=== PATIENT | male | born 1950 | race Caucasian/White ===

== ENCOUNTER 2021-03-31 02:07 | Emergency (ER) | payer MEDICARE, OTHER, SELFPAY ==
--- NOTE | 2021-03-31 02:34 | ED_ITS ---
HPI - General Adult General Chief complaint: Chest Pain Stated complaint: Pain in muscle left side by arm/chest Time Seen by Provider: 03/31/21 02:18 History of Present Illness HPI narrative: Patient is a 71-year-old male here for evaluation of what he states is muscle pain in his left arm and chest. He has had symptoms off and on for the past several weeks however over the past 24 hours the symptoms seem to be more consistent. He states that he can not touch the area and make it worse and also move his left arm in make it worse. He had very similar symptoms about 40 years ago and was told that it was a muscle spasm. Recently he has been doing quite a bit of work outside. He did walk this morning and had no symptoms during that time. This evening he was lying down trying to go to sleep and the symptoms seem to be more consistent we came in for evaluation. Review of Systems Constitutional Constitutional: Reports system reviewed and no additional complaints, except as documented ENT Ears, Nose, Mouth, and Throat: Reports system reviewed and no additional complaints, except as documented Cardiovascular Cardiovascular: Reports as per HPI Respiratory Respiratory: Reports system reviewed and no additional complaints, except as documented Gastrointestinal Gastrointestinal: Reports system reviewed and no additional complaints, except as documented Musculoskeletal Musculoskeletal: Reports as per HPI Integumentary/Breasts Skin/Breast: Reports system reviewed and no additional complaints, except as documented Neurologic Neurologic: Reports system reviewed and no additional complaints, except as documented Hematologic/Lymphatic On Anticoagulants: No Allergic/Immunologic Allergic/Immunologic: Reports system reviewed and no additional complaints, except as documented Patient History Medical History Prostate cancer Social History Smoking Status: Never smoker Exam Initial Vital Signs Initial Vital Signs: Vital Signs Temperature 98.4 F 03/31/21 02:38 Pulse Rate 97 H 03/31/21 02:38 Respiratory Rate 22 03/31/21 02:38 Blood Pressure 139/83 03/31/21 02:38 Pulse Oximetry 97 03/31/21 02:38 Const General: cooperative, healthy appearing and comfortable HENVA Head: normal to inspection and normocephalic Eyes General: appearance normal, both eyes and all related structures Chest Chest: normal inspection of the chest Resp Effort & Inspection: normal respiratory effort Auscultation: clear to auscultation bilaterally Cardio Rate: regular rate Rhythm: regular rhythm GI Inspection: normal to inspection Skin General: no rashes or lesions noted Neuro General: patient alert, patient awake, patient oriented x3 and moves all extremities Extrem General: normal to inspection and capillary refill normal Other: We were able to localize the symptoms with palpation of the lateral aspect of the left pectoralis muscle. Rest of his musculoskeletal exam is unremarkable Psych Appearance: grossly normal and well kempt Course Orders Ordered: ED Orders 03/31/21 EKG-12 Lead Stat 03/31/21 02:30 Complete Blood Count AUTO DIFF Stat Comprehensive Metabolic Panel Stat Lipase Stat Troponin & CK Cardiac Panel Stat 03/31/21 02:42 XR chest 1V Stat Sodium Chloride (Normal Saline 0.9%) 1,000 mls @ 150 mls/hr IV CONT PAYTON Last Admin: 03/31/21 03:21 Dose: Not Given Documented by: MAR Discontinued Medications Aspirin (Aspirin 81 Mg Chew Tab) 324 mg PO NOW ONE Stop: 03/31/21 02:43 Last Admin: 03/31/21 03:21 Dose: Not Given Documented by: MAR Vital Signs Vital signs: Vital Signs - 8 hr 03/31/21 02:38 Temperature 98.4 F Pulse Rate 97 H Respiratory Rate 22 Blood Pressure 139/83 Pulse Oximetry 97 Medical Decision Making Lab Data Lab results reviewed: Yes I reviewed the patient's lab results. Result diagrams: 03/31/21 02:30 03/31/21 02:30 Labs: Lab Results 03/31/21 03/31/21 Range/Units 02:30 02:30 WBC 6.9 (4.5-11.0) X10^3/uL RBC 4.79 (4.5-5.9) X10^6/uL Hgb 15.5 (13.5-17.5) g/dL Hct 45.7 (41-53) % MCV 95.3 (80-100) fL MCH 32.3 (26-34) PG MCHC 33.9 (30-36) % RDW 13.1 (11.6-14.8) % Plt Count 152 (150-400) X10^3/uL Neut % (Auto) 76.7 H (50-75) % Lymph % (Auto) 7.2 L (25-40) % [place] % (Auto) 10.7 (3-14) % Eos % (Auto) 3.7 (2-4) % Baso % (Auto) 1.7 (0-2) % Neut # (Auto) 5300 (7843-9505) /uL Lymph # (Auto) 500 L (3821-5211) /uL [place] # (Auto) 700 (0-900) /uL Eos # (Auto) 300 (0-450) /uL Baso # (Auto) 100 (0-100) /uL Sodium 137 (137-145) mmol/L Potassium 3.9 (3.4-5.1) mmol/L Chloride 104 (98-107) mmol/L Carbon Dioxide 28 (22-32) mmol/L BUN 23 H (9-20) mg/dL Creatinine 0.72 (0.66-1.25) mg/dL Estimated GFR > 60.0 (>60) mL/min BUN/Creatinine Ratio 31.9 H (6-22) Glucose 96 (80-110) mg/dL Calcium 8.8 (8.4-10.2) mg/dL Total Bilirubin 0.5 (0.2-1.3) mg/dL AST 28 (17-59) IU/L ALT 23 (<50) IU/L Alkaline Phosphatase 56 (38-126) U/L Total Creatine Kinase 39 L (55-170) U/L CK-MB (CK-2) TNP CK-MB (CK-2) Rel Index TNP Troponin I < 0.012 (0.01-0.034) ng/mL Total Protein 6.5 (6.3-8.2) g/dL Albumin 3.6 (3.5-5.0) g/dL Globulin 2.9 (1.7-4.1) g/dL Albumin/Globulin Ratio 1.2 (1.0-2.8) Lipase 349 H (23-300) U/L Imaging Data Chest x-ray: Radiologist's Impression: No acute finding ECG Data Attestation: I personally reviewed and interpreted this ECG as follows: Interpretation: Sinus rhythm Ventricular rate is 69 Normal axis Normal QRS Normal QTC No ST T wave changes MDM Narrative Medical decision making narrative: Patient's symptoms today are clearly musculoskeletal. They are reproducible with movement of his left arm and also with palpation of the lateral aspect of his left pectoralis muscle. His tro ponin EKG and chest x-ray in the rest of his workup were unremarkable. I feel that we can hold on further workup for now. I did discuss this with the patient. He was given return precautions. He expressed understanding and agreement. Discharge Plan Departure Patient Disposition: Home Clinical Impression: Pectoralis muscle strain Instructions: Muscle Strain Activity Restrictions/Additional Instructions: Continue all of your medications as directed. Contact your primary provider for a follow-up. Return to the emergency department for any new or worsening symptoms
[2021-03-31 02:38] VITALS: BP 139/83; PULSE 97; RESP 22; TEMP 36.9; O2SAT 97; BMI 22.4
--- NOTE | 2021-03-31 02:42 | DI.RAD.S_ITS ---
PROCEDURE: XR CHEST 1V INDICATIONS: chest pain TECHNIQUE: One view of the chest was acquired. COMPARISON: None. FINDINGS: Surgical changes and devices: None. Lungs and pleura: Lungs are clear. No pleural effusions or pneumothorax. Mediastinum: Mediastinal contours appear normal. Heart size is normal. Bones and chest wall: No suspicious bony lesions. Overlying soft tissues appear unremarkable. IMPRESSION: No acute cardiopulmonary disease process. Dictated by: Heather Ortiz MD, PhD on 03/31/2021 at 9:00 Approved by: Heather Ortiz MD, PhD on 03/31/2021 at 9:01
[2021-03-31 02:54] LABS: Add Manual Diff / Slide Review NO; Basophils Absolute Auto 100 /uL (0-100); Basophils Percent Auto 1.7 % (0-2); Eosinophils Absolute Auto 300 /uL (0-450); Eosinophils Percent Auto 3.7 % (2-4); Hematocrit 45.7 % (41-53); Hemoglobin 15.5 g/dL (13.5-17.5); Lymphocytes Absolute Auto 500 /uL (1100-4500); Lymphocytes Percent Auto 7.2 % (25-40); Mean Corpuscular HGB Conc 33.9 % (30-36); Mean Corpuscular Hemoglobin 32.3 PG (26-34); Mean Corpuscular Volume 95.3 fL (80-100); Monocytes Absolute Auto 700 /uL (0-900); Monocytes Percent Auto 10.7 % (3-14); Neutrophils Absolute Auto 5300 /uL (1500-7000); Neutrophils Percent Auto 76.7 % (50-75); Platelet Count 152 X10^3/uL (150-400); Red Blood Cell Count 4.79 X10^6/uL (4.5-5.9); Red Cell Distribution Width 13.1 % (11.6-14.8); White Blood Cell Count 6.9 X10^3/uL (4.5-11.0)
[2021-03-31 02:55] LABS: Alanine Aminotransferase 23 IU/L (<50); Albumin 3.6 g/dL (3.5-5.0); Albumin Globulin Ratio 1.2 (1.0-2.8); Alkaline Phosphatase 56 U/L (38-126); Aspartate Aminotransferase 28 IU/L (17-59); BUN Creatinine Ratio 31.9 (6-22); Bilirubin Total 0.5 mg/dL (0.2-1.3); Blood Urea Nitrogen 23 mg/dL (9-20); Calcium 8.8 mg/dL (8.4-10.2); Carbon Dioxide 28 mmol/L (22-32); Chloride 104 mmol/L (98-107); Creatine Kinase 39 U/L (55-170); Estimated Glomerular Filt Rate > 60.0 mL/min (>60); Globulin 2.9 g/dL (1.7-4.1); Glucose 96 mg/dL (80-110); HEMOLYSIS 38 (0-50); Lipase 349 U/L (23-300); Potassium 3.9 mmol/L (3.4-5.1); Sodium 137 mmol/L (137-145); Total Protein 6.5 g/dL (6.3-8.2)
[2021-03-31 03:06] LABS: Troponin I < 0.012 ng/mL (0.01-0.034)
== END 2021-03-31 04:30 | disposition home or self-care (01) ==
PROVIDERS: Emergency Provider Emergency Medicine
DX: S29.011A Strain of muscle and tendon of front wall of thorax, initial encounter (principal)
CPT/HCPCS: 36415; 71045; 80053; 82550; 83690; 84484; 85025; 93005; 99283; 99284

== ENCOUNTER 2021-06-27 07:04 | Emergency (ER) | payer MEDICARE, OTHER, SELFPAY ==
[2021-06-27 07:09] VITALS: BP 159/82; PULSE 70; RESP 16; TEMP 36.6; O2SAT 95; BMI 23.7
--- NOTE | 2021-06-27 07:19 | ED_ITS ---
HPI - Eye Problem General Chief complaint: Eye Problems Stated complaint: right eye puffy/blurry vision x1 day Time Seen by Provider: 06/27/21 07:09 History of Present Illness HPI Narrative: 71-year-old male nonsmoker with history of atrial fibrillation presents with his in the chief complaint of an irritation to his right eye over the past day or so. He states that he has no pain but some swelling of the eye and eyelid along with redness and watering. He denies no pain or injury. He was working on his boat yesterday and may have got something in his eye but he does not remember any definite exposure. He denies upper respiratory complaints such as runny nose, sneezing or cough. He has had no fever or chills. He denies any headache or other neurologic symptoms. He does not wear contacts. Related Data Previous Rx's Medication Instructions Recorded sulfacetamide sodium 10 % eye drops 1 drp EYE-RIGHT Q2H #5 ml 06/27/21 Allergies Allergy/AdvReac Type Severity Reaction Status Date / Time quinine Allergy Mild Rash Verified 06/27/21 07:30 Review of Systems Review of Systems Narrative: GENERAL: Denies chills, fatigue, malaise, fever, sweats. HEENT: See HPI RESPIRATORY: Denies dyspnea, cough, wheezing, hemoptysis, sputum. CARDIOVASCULAR: Denies chest pain, palpitations, orthopnea, edema, GASTROINTESTINAL: Denies nausea, vomiting, abdominal pain, diarrhea, constipation, melena. : Denies dysuria, frequency, incontinence, hematuria, urinary retention. MUSCULOSKELETAL: denies weakness, joint pain, or bony pain SKIN: Denies rash, skin lesions, or other NEUROLOGIC: Denies weakness, headache, numbness, change in speech, confusion, seizures, incoordination. PSYCHIATRIC: No concerning psychosocial issues. 12 point review of systems is negative except for those stated above Patient History Medical History Prostate cancer Social History Smoking Status: Never smoker Smoking Status: Never smoker Substance Use Type: does not use Exam Narrative Exam Narrative: GEN: AOx3 and in mild distress EYES: Pupils are equal, round, and reactive to light and accommodation. Extraoccular muscles are intact bilaterally. Right eye slightly injected with raise clear to yellowish tissue at the 9 o'clock position of right eye overlying sclera, does not cross virus. No foreign bodies noted, upper lid aide it. Visual acuity noted on nurse's note. No fluorescein uptake. Pressure with David-Pen, 21 mm Hg CHEST: Lungs are clear to auscultation bilaterally and free of wheezes, rales, or rhonchi. Heart rate is regular rhythm, there are no murmurs, clicks, rubs, or gallops. There is no chest wall tenderness. ABD: Abdomen is soft and nontender. There is no guarding or rebound. Bowel sounds are normal in all 4 quadrants. There is no mass or organomegaly. EXT: Full painless ROM of all extremities with no loss of sensation or strength. SKIN: Warm, pink, and dry. No erythema or rash Initial Vital Signs Initial Vital Signs: Vital Signs Temperature 97.9 F 06/27/21 07:09 Pulse Rate 70 06/27/21 07:09 Respiratory Rate 16 06/27/21 07:09 Blood Pressure 159/82 H 06/27/21 07:09 Pulse Oximetry 95 06/27/21 07:09 Course Orders Ordered: Discontinued Medications Fluorescein Sodium (Fluorescein 1 Mg Strip) 1 mg EYE-RIGHT NOW ONE Stop: 06/27/21 07:20 Last Admin: 06/27/21 07:24 Dose: 1 mg Documented by: GLORIA Proparacaine HCl (Proparacaine 0.5% Ophth Marian) 1 drops EYE-RIGHT NOW ONE Stop: 06/27/21 07:20 Last Admin: 06/27/21 07:24 Dose: 1 drop Documented by: GLORIA Vital Signs Vital signs: Vital Signs - 8 hr 06/27/21 07:09 Temperature 97.9 F Pulse Rate 70 Respiratory Rate 16 Blood Pressure 159/82 H Pulse Oximetry 95 MDM - Eye Problem MDM Narrative Medical decision making narrative: Patient with painless right eye complaint for less than 24 hours, no obvious trauma or injury. No vision change. No contacts. Physical exam is very reassuring. No evidence of corneal ulcers, abnormal pressures to suggest glaucoma. Most likely pain quite kill as it does not cross iris versus Carine GM. Patient given antibiotics for comfort and coverage of potential early infection. Return precautions given and questions answered to his apparent satisfaction Discharge Plan Departure Patient Disposition: Home Clinical Impression: Pterygium eye Qualifiers: Laterality: right Qualified Code(s): H11.001 - Unspecified pterygium of right eye Activity Restrictions/Additional Instructions: *You have been diagnosed with [right eye irritation, most likely a pterygium or pinguecula *What to do: *Please continue to take your regular medications as directed. [x ] New medication prescriptions sent to your pharmacy: [[facility] ] [ ] New medication written as a paper prescription [ ] No new medications given *Please follow up with your primary care provider in 2-3 days, call for an appointment. Let them know you were seen in the Emergency Department and that we ask that you be seen in follow up. We will electronically transmit a record of today's note if your PCP is in our system *If you do not have a primary care provider please contact the [facility] Resource line at [phone]. They will ask some questions about your medical history and help get you set up with a doctor in the community. *Return to Emergency Department if you should have any new, worsening or concerning symptoms, such as [fever greater than 101 F, shaking chills, worsening pain, persistent vomiting or other bothersome symptoms] Prescriptions: New sulfacetamide sodium 10 % drops 1 drp EYE-RIGHT Q2H Qty: 5 RF: 0 Referrals: Gaudencio Castañeda MD [Physician] -
[2021-06-27] MEDS: FLUORESCEIN 1 MG STRIP EYE-RIGHT (07:24)
[2021-06-27] MEDS: PROPARACAINE 0.5% OPHTH SOL 1 DROPS EYE-RIGHT (07:24)
== END 2021-06-27 08:00 | disposition home or self-care (01) ==
PROVIDERS: Emergency Provider Emergency Medicine
DX: H11.001 Unspecified pterygium of right eye (principal)
CPT/HCPCS: 99282

== ENCOUNTER 2022-08-21 11:28 | Emergency (ER) | payer MEDICARE, OTHER, SELFPAY ==
[2022-08-21] VITALS (10 sets, daily range): BP systolic 119–144; BP diastolic 74–84; PULSE 63–80; RESP 14–29; TEMP 36.2; O2SAT 95–99; BMI 23.1
--- NOTE | 2022-08-21 11:56 | DI.RAD.S_ITS ---
PROCEDURE: XR CHEST 1V INDICATIONS: chest pain TECHNIQUE: One view of the chest was acquired. COMPARISON: [facility], CR, XR CHEST 1V, 03/31/2021, 2:45. FINDINGS: Surgical changes and devices: None. Lungs and pleura: 222 On this semiupright portable chest examination, no large pneumothorax or large pleural effusions are seen. No focal infiltrates are seen. Mediastinum: Mediastinal contours appear normal. Heart size is normal. Bones and chest wall: No suspicious bony lesions. Overlying soft tissues appear unremarkable. IMPRESSION: Portable chest within normal limits. Dictated by: Lamin Rousseau M.D. on 08/21/2022 at 11:09 Approved by: Lamin Rousseau M.D. on 08/21/2022 at 11:10
[2022-08-21] MEDS: ASPIRIN 81 MG CHEW TAB 324 MG PO (12:30)
[2022-08-21 12:36] LABS: Add Manual Diff / Slide Review NO; Basophils Absolute Auto 100 /uL (0-100); Basophils Percent Auto 1.2 % (0-2); Eosinophils Absolute Auto 100 /uL (0-450); Eosinophils Percent Auto 2.8 % (2-4); Hemoglobin 16.6 g/dL (13.5-17.5); Lymphocytes Absolute Auto 800 /uL (1100-4500); Lymphocytes Percent Auto 16.1 % (25-40); Mean Corpuscular HGB Conc 33.9 % (30-36); Mean Corpuscular Hemoglobin 32.1 PG (26-34); Mean Corpuscular Volume 94.8 fL (80-100); Monocytes Absolute Auto 600 /uL (0-900); Monocytes Percent Auto 12.5 % (3-14); Neutrophils Absolute Auto 3200 /uL (1500-7000); Neutrophils Percent Auto 67.4 % (50-75); Platelet Count 183 X10^3/uL (150-400); Red Blood Cell Count 5.17 X10^6/uL (4.5-5.9); Red Cell Distribution Width 13.2 % (11.6-14.8); White Blood Cell Count 4.7 X10^3/uL (4.5-11.0)
[2022-08-21 12:47] LABS: Prothrombin Time 11.9 SECONDS (10.1-12.7)
[2022-08-21 12:50] LABS: PTT Partial Thromboplastin Tim 32 SECONDS (26-36)
[2022-08-21 12:56] LABS: Alanine Aminotransferase 25 IU/L (<50); Albumin Globulin Ratio 1.2 (1.0-2.8); Alkaline Phosphatase 63 U/L (38-126); Aspartate Aminotransferase 25 IU/L (17-59); BUN Creatinine Ratio 20.2 (6-22); Bilirubin Total 0.5 mg/dL (0.2-1.3); Blood Urea Nitrogen 19 mg/dL (9-20); Calcium 8.9 mg/dL (8.4-10.2); Carbon Dioxide 28 mmol/L (22-32); Chloride 101 mmol/L (98-107); Creatine Kinase 43 U/L (55-170); Estimated Glomerular Filt Rate > 60 mL/min (>60); Globulin 3.4 g/dL (1.7-4.1); Glucose 92 mg/dL (80-110); HEMOLYSIS 16 (0-50); Lipase 57 U/L (23-300); Potassium 4.3 mmol/L (3.4-5.1); Sodium 138 mmol/L (137-145); Total Protein 7.4 g/dL (6.3-8.2)
[2022-08-21 13:06] LABS: Troponin I < 0.012 ng/mL (0.01-0.034)
--- NOTE | 2022-08-21 13:08 | DI.US.S_ITS ---
PROCEDURE: US PERIPH VENOUS UP EXTREM LT INDICATIONS: PAIN TECHNIQUE: Real-time imaging, as well as color and pulse Doppler interrogation, was performed of the left upper extremity deep veins from the inferior neck to the antecubital fossa. COMPARISON: [facility], CR, XR CHEST 1V, 08/21/2022, 11:55. FINDINGS: The internal jugular vein, visualized portions of the subclavian vein, axillary, and brachial veins are free of intraluminal thrombus. Where physically possible, the veins are normally compressible. Color and pulse Doppler demonstrate normal intraluminal flow, with expected phasicity and pulsatility. Additional scanning of the cephalic and basilic veins of the superficial system demonstrate normal compressibility, without thrombus. IMPRESSION: No left upper extremity DVT. Dictated by: Galo Winslow M.D. on 08/21/2022 at 15:06 Approved by: Galo Winslow M.D. on 08/21/2022 at 15:07
--- NOTE | 2022-08-21 15:30 | ED.CHESTPAIN ---
HPI - Chest Pain <Berenice Espinosa PA-C - Last Filed: 08/21/22 15:36> General Chief Complaint: Chest Pain Stated Complaint: rt Under arm pain and tingling Time Seen by Provider: 08/21/22 12:09 Source: patient Mode of arrival: Ambulatory Limitations: no limitations History of Present Illness HPI narrative: 72-year-old male with past medical history AFib, status post ablation presents to the ED with 1 week of left-sided chest muscle pain, which migrated into his left upper arm today. Patient is concerned that he might have a blood clot in his arm. No history of blood clots. Patient denies fever, chills, rhinorrhea, cough, trouble breathing, nausea, vomiting, abdominal pain, dysuria, lightheadedness, dizziness, syncope. Patient has full range of motion of his arm. Patient denies numbness, weakness. Patient endorses some intermittent tingling in the fingers of his left hand. Patient states that he did sustain an injury last week when he was trying to hold up a cabinet up above on the wall. Related Data Previous Rx's Medication Instructions Recorded sulfacetamide sodium 10 % eye drops 1 drp EYE-RIGHT Q2H #5 mL 06/27/21 Allergies Allergy/AdvReac Type Severity Reaction Status Date / Time quinine Allergy Mild Rash Verified 06/27/21 07:30 Review of Systems <Berenice Espinosa PA-C - Last Filed: 08/21/22 15:36> Review of Systems ROS Unobtainable: All systems reviewed & are unremarkable except as noted in HPI and below Constitutional Constitutional: Denies chills, Denies fatigue, Denies fever(s), Denies frequent falls, Denies lethargy and Denies weakness Eyes Eyes: Denies change in vision, Denies eye discharge, Denies irritation and Denies loss of vision ENT Ears, Nose, Mouth, and Throat: Denies change in voice, Denies dizziness, Denies neck pain, Denies sore throat and Denies throat swelling Cardiovascular Cardiovascular: Reports chest pain, Denies irregular heart rhythm, Denies lightheadedness, Denies palpitations, Denies dyspnea, Denies dyspnea on exertion and Denies orthopnea Respiratory Respiratory: Denies cough, Denies dyspnea, Denies dyspnea on exertion and Denies wheezing Gastrointestinal Gastrointestinal: Denies abdominal pain, Denies change in bowel habits, Denies diarrhea, Denies nausea and Denies vomiting Genitourinary Genitourinary: Denies hematuria, Denies flank pain, Denies urinary incontinence and Denies urinary urgency Musculoskeletal Musculoskeletal: Denies back pain, Denies muscle weakness, Denies neck pain, Denies numbness and Denies tingling Comments: Left upper arm pain, tingling Integumentary/Breasts Skin/Breast: Denies pruritus, Denies erythema, Denies rash and Denies wounds Neurologic Neurologic: Denies behavioral changes, Denies confusion, Denies dizziness, Denies frequent falls, Denies loss of vision, Denies numbness, Denies tingling and Denies weakness Psychiatric Psychiatric: Denies anxiety, Denies behavioral changes, Denies confusion, Denies depression, Denies homicidal ideation and Denies suicidal ideation Endocrine Endocrine: Denies fatigue, Denies flushing and Denies palpitations Hematologic/Lymphatic Hematologic/Lymphatic: Denies easy bruising Allergic/Immunologic Allergic/Immunologic: Denies urticaria, Denies throat swelling and Denies wheezing Patient History <Berenice Espinosa PA-C - Last Filed: 08/21/22 15:36> Medical History Prostate cancer Social History Smoking Status: Never smoker Smoking Status: Never smoker alcohol intake frequency: 0-2 drinks per day Substance Use Type: does not use Exam <Berenice Espinosa PA-C - Last Filed: 08/21/22 15:36> Narrative Exam Narrative: Const General:?cooperative, healthy appearing and comfortable [facility] Head:?normal to inspection Ears:?hearing grossly normal bilaterally Nose:?external nose normal Face and sinus:?normal facial exam and sinuses nontender Mouth:?oral mucosae normal Throat:?posterior oropharynx normal Eyes General:?appearance normal, both eyes and all related structures Neck Neck:?normal visual inspection and no lymphadenopathy noted Resp Effort & Inspection:?normal respiratory effort Auscultation:?clear to auscultation bilaterally Cardio Rate:?regular rate Rhythm:?regular rhythm Musculoskeletal No tenderness to palpation or deformities of left arm. There is full range of motion of left arm. Strength and sensation are intact. Patient is neurovascularly intact. Neuro General:?patient alert, patient awake and patient oriented x3 Initial Vital Signs Initial Vital Signs: Vital Signs Temperature 97.1 F L 08/21/22 11:43 Pulse Rate 80 08/21/22 11:43 Respiratory Rate 14 08/21/22 11:43 Blood Pressure 144/78 H 08/21/22 11:43 Pulse Oximetry 99 08/21/22 11:43 Oxygen Delivery Method 08/21/22 11:43 <Sydnie Akins DO - Last Filed: 08/23/22 07:25> Initial Vital Signs Initial Vital Signs: Vital Signs Temperature 97.1 F L 08/21/22 11:43 Pulse Rate 80 08/21/22 11:43 Respiratory Rate 14 08/21/22 11:43 Blood Pressure 144/78 H 08/21/22 11:43 Pulse Oximetry 99 08/21/22 11:43 Oxygen Delivery Method 08/21/22 11:43 Course <Berenice Espinosa PA-C - Last Filed: 08/21/22 15:36> Orders Ordered: Discontinued Medications Aspirin (Aspirin 81 Mg Chew Tab) 324 mg PO NOW ONE Stop: 08/21/22 11:57 Last Admin: 08/21/22 12:30 Dose: 324 mg Documented By: MLCoco Vital Signs Vital signs: Vital Signs - 8 hr 08/21/22 11:43 08/21/22 12:19 08/21/22 12:20 Temperature 97.1 F L Pulse Rate 80 70 Respiratory Rate 14 14 Blood Pressure 144/78 H 122/75 Pulse Oximetry 99 97 Oxygen Delivery Method Room Air 08/21/22 12:20 08/21/22 12:30 08/21/22 12:30 Temperature Pulse Rate 70 66 Respiratory Rate 22 22 Blood Pressure 121/75 Pulse Oximetry 96 98 Oxygen Delivery Method 08/21/22 13:01 08/21/22 13:01 08/21/22 13:30 Temperature Pulse Rate 70 Respiratory Rate 26 H Blood Pressure 135/81 130/84 Pulse Oximetry 96 Oxygen Delivery Method 08/21/22 13:30 08/21/22 14:00 08/21/22 14:00 Temperature Pulse Rate 68 65 Respiratory Rate 18 15 Blood Pressure 119/80 Pulse Oximetry 96 96 Oxygen Delivery Method 08/21/22 14:30 08/21/22 14:30 08/21/22 15:00 Temperature Pulse Rate 65 Respiratory Rate 19 Blood Pressure 131/74 130/82 Pulse Oximetry 95 Oxygen Delivery Method 08/21/22 15:00 Temperature Pulse Rate 63 Respiratory Rate 17 Blood Pressure Pulse Oximetry 96 Oxygen Delivery Method <Sydnie Akins DO - Last Filed: 08/23/22 07:25> Orders Ordered: Discontinued Medications Aspirin (Aspirin 81 Mg Chew Tab) 324 mg PO NOW ONE Stop: 08/21/22 11:57 Last Admin: 08/21/22 12:30 Dose: 324 mg Documented By: MLM Vital Signs Vital signs: Vital Signs - 8 hr 08/21/22 11:43 08/21/22 12:19 08/21/22 12:20 Temperature 97.1 F L Pulse Rate 80 70 Respiratory Rate 14 14 Blood Pressure 144/78 H 122/75 Pulse Oximetry 99 97 Oxygen Delivery Method Room Air 08/21/22 12:20 08/21/22 12:30 08/21/22 12:30 Temperature Pulse Rate 70 66 Respiratory Rate 22 22 Blood Pressure 121/75 Pulse Oximetry 96 98 Oxygen Delivery Method 08/21/22 13:01 08/21/22 13:01 08/21/22 13:30 Temperature Pulse Rate 70 Respiratory Rate 26 H Blood Pressure 135/81 130/84 Pulse Oximetry 96 Oxygen Delivery Method 08/21/22 13:30 08/21/22 14:00 08/21/22 14:00 Temperature Pulse Rate 68 65 Respiratory Rate 18 15 Blood Pressure 119/80 Pulse Oximetry 96 96 Oxygen Delivery Method 08/21/22 14:30 08/21/22 14:30 08/21/22 15:00 Temperature Pulse Rate 65 Respiratory Rate 19 Blood Pressure 131/74 130/82 Pulse Oximetry 95 Oxygen Delivery Method 08/21/22 15:00 Temperature Pulse Rate 63 Respiratory Rate 17 Blood Pressure Pulse Oximetry 96 Oxygen Delivery Method MDM - Chest Pain <Berenice Espinosa PA-C - Last Filed: 08/21/22 15:36> Lab Data Result diagrams: 08/21/22 12:30 08/21/22 12:30 Labs: Lab Results 08/21/22 08/21/22 08/21/22 Range/Units 12:30 12:30 12:30 WBC 4.7 (4.5-11.0) X10^3/uL RBC 5.17 (4.5-5.9) X10^6/uL Hgb 16.6 (13.5-17.5) g/dL Hct 49.0 (41-53) % MCV 94.8 (80-100) fL MCH 32.1 (26-34) PG MCHC 33.9 (30-36) % RDW 13.2 (11.6-14.8) % Plt Count 183 (150-400) X10^3/uL Neut % (Auto) 67.4 (50-75) % Lymph % (Auto) 16.1 L (25-40) % [place] % (Auto) 12.5 (3-14) % Eos % (Auto) 2.8 (2-4) % Baso % (Auto) 1.2 (0-2) % Neut # (Auto) 3200 (6665-4492) /uL Lymph # (Auto) 800 L (9373-2239) /uL [place] # (Auto) 600 (0-900) /uL Eos # (Auto) 100 (0-450) /uL Baso # (Auto) 100 (0-100) /uL PT 11.9 (10.1-12.7) SECONDS INR 1.0 (0.9-1.3) APTT 32 (26-36) SECONDS Sodium 138 (137-145) mmol/L Potassium 4.3 (3.4-5.1) mmol/L Chloride 101 (98-107) mmol/L Carbon Dioxide 28 (22-32) mmol/L BUN 19 (9-20) mg/dL Creatinine 0.94 (0.66-1.25) mg/dL Estimated GFR > 60 (>60) mL/min BUN/Creatinine Ratio 20.2 (6-22) Glucose 92 (80-110) mg/dL Calcium 8.9 (8.4-10.2) mg/dL Magnesium 2.0 (1.6-2.3) mg/dL Total Bilirubin 0.5 (0.2-1.3) mg/dL AST 25 (17-59) IU/L ALT 25 (<50) IU/L Alkaline Phosphatase 63 (38-126) U/L Total Creatine Kinase 43 L (55-170) U/L CK-MB (CK-2) TNP CK-MB (CK-2) Rel Index TNP Troponin I < 0.012 (0.01-0.034) ng/mL Total Protein 7.4 (6.3-8.2) g/dL Albumin 4.0 (3.5-5.0) g/dL Globulin 3.4 (1.7-4.1) g/dL Albumin/Globulin Ratio 1.2 (1.0-2.8) Lipase 57 (23-300) U/L Imaging Data Chest x-ray: Radiologist's Impression: PROCEDURE:? XR CHEST 1V ? INDICATIONS:? chest pain ? TECHNIQUE:? One view of the chest was acquired.? ? COMPARISON:? [facility], XR CHEST 1V, 03/31/2021, 2:45. ? FINDINGS:? ? Surgical changes and devices:? None.? ? Lungs and pleura:? 222 On this semiupright portable chest examination, no large pneumothorax or large pleural effusions are seen.? No focal infiltrates are seen.? ? Mediastinum:? Mediastinal contours appear normal.? Heart size is normal.? ? Bones and chest wall:? No suspicious bony lesions.? Overlying soft tissues appear unremarkable.? ? IMPRESSION:? ? Portable chest within normal limits. ? ? ? Dictated by: Lamin Rousseau M.D. on 08/21/2022 at 11:09 ? ? Approved by: Lamin Rousseau M.D. on 08/21/2022 at 11:10 ? Ultrasound left upper extremity: Radiologist's Impression: PROCEDURE:? US PERIPH VENOUS UP EXTREM LT ? INDICATIONS:? PAIN ? TECHNIQUE:? Real-time imaging, as well as color and pulse Doppler interrogation, was performed of the left upper extremity deep veins from the inferior neck to the antecubital fossa.? ? COMPARISON:? [facility], XR CHEST 1V, 08/21/2022, 11:55. ? FINDINGS:? The internal jugular vein, visualized portions of the subclavian vein, axillary, and brachial veins are free of intraluminal thrombus.? Where physically possible, the veins are normally compressible.? Color and pulse Doppler demonstrate normal intraluminal flow, with expected phasicity and pulsatility.? Additional scanning of the cephalic and basilic veins of the superficial system demonstrate normal compressibility, without thrombus.? ? IMPRESSION:? No left upper extremity DVT. ? ? Dictated by: Galo Winslow M.D. on 08/21/2022 at 15:06 ? ? Approved by: Galo Winslow M.D. on 08/21/2022 at 15:07 ? [facility] Narrative Medical decision making narrative: 72-year-old male with past medical history AFib, status post ablation presents to the ED with 1 week of left-sided chest muscle pain, which migrated into his left upper arm today. Concern for ACS versus chest wall pain versus musculoskeletal sprain/strain versus DVT versus pneumonia versus other. Will obtain EKG, chest x-ray, labs, troponin, ultrasound left upper extremity. Workup was largely negative. Ultrasound showed no evidence of DVTs. Patient's symptoms are likely due to a musculoskeletal sprain/strain when he was trying to hold up the cabinet last week. Recommend supportive measures with Tylenol, ibuprofen. Recommend follow-up with PCP in 3 days. ED return precautions were discussed with patient. Patient verbalized understanding. <Sydnie Akins, DO - Last Filed: 08/23/22 07:25> Lab Data Labs: Lab Results 08/21/22 08/21/22 08/21/22 Range/Units 12:30 12:30 12:30 WBC 4.7 (4.5-11.0) X10^3/uL RBC 5.17 (4.5-5.9) X10^6/uL Hgb 16.6 (13.5-17.5) g/dL Hct 49.0 (41-53) % MCV 94.8 (80-100) fL MCH 32.1 (26-34) PG MCHC 33.9 (30-36) % RDW 13.2 (11.6-14.8) % Plt Count 183 (150-400) X10^3/uL Neut % (Auto) 67.4 (50-75) % Lymph % (Auto) 16.1 L (25-40) % [place] % (Auto) 12.5 (3-14) % Eos % (Auto) 2.8 (2-4) % Baso % (Auto) 1.2 (0-2) % Neut # (Auto) 3200 (8674-8900) /uL Lymph # (Auto) 800 L (2057-2901) /uL [place] # (Auto) 600 (0-900) /uL Eos # (Auto) 100 (0-450) /uL Baso # (Auto) 100 (0-100) /uL PT 11.9 (10.1-12.7) SECONDS INR 1.0 (0.9-1.3) APTT 32 (26-36) SECONDS Sodium 138 (137-145) mmol/L Potassium 4.3 (3.4-5.1) mmol/L Chloride 101 (98-107) mmol/L Carbon Dioxide 28 (22-32) mmol/L BUN 19 (9-20) mg/dL Creatinine 0.94 (0.66-1.25) mg/dL Estimated GFR > 60 (>60) mL/min BUN/Creatinine Ratio 20.2 (6-22) Glucose 92 (80-110) mg/dL Calcium 8.9 (8.4-10.2) mg/dL Magnesium 2.0 (1.6-2.3) mg/dL Total Bilirubin 0.5 (0.2-1.3) mg/dL AST 25 (17-59) IU/L ALT 25 (<50) IU/L Alkaline Phosphatase 63 (38-126) U/L Total Creatine Kinase 43 L (55-170) U/L CK-MB (CK-2) TNP CK-MB (CK-2) Rel Index TNP Troponin I < 0.012 (0.01-0.034) ng/mL Total Protein 7.4 (6.3-8.2) g/dL Albumin 4.0 (3.5-5.0) g/dL Globulin 3.4 (1.7-4.1) g/dL Albumin/Globulin Ratio 1.2 (1.0-2.8) Lipase 57 (23-300) U/L ECG Data Interpretation: Alfrednick-normal sinus rhythm rate 71 CO interval 142 QRS [address] depression with T-wave inversion noted in lead 3 similar to previous EKG in 2020 no further changes. Discharge Plan Departure Patient Disposition: Home Clinical Impression: Arm pain Instructions: DI for Arm Pain Activity Restrictions/Additional Instructions: You were evaluated in the ED today for left arm pain and left-sided chest muscle pain. Your chest x-ray, EKG, labs, ultrasound were normal. Your symptoms are likely due to a musculoskeletal sprain/strain that you sustained when you were trying to hold up the cabinet. You may take Tylenol or ibuprofen for your symptoms. Please follow-up with your primary care doctor in 3 days. Return to the ED if your symptoms worsen you have worsening chest pain, trouble breathing. Prescriptions: No Action sulfacetamide sodium 10 % drops 1 drp EYE-RIGHT Q2H Qty: 5 0RF Rx Instructions: while awake, until better Visit Report Forms: Patient Portal/API <Sydnie Akins DO - Last Filed: 08/23/22 07:25> Cosign ED Attending Marianna Attestation: I was immediately available in the department for consultation. Documentation has been reviewed. I agree with assessment and plan.
== END 2022-08-21 16:00 | disposition home or self-care (01) ==
PROVIDERS: Emergency Medicine; Emergency Provider Student in an Organized Health Care Education/Training Program
DX: M79.602 Pain in left arm (principal); R07.89 Other chest pain
CPT/HCPCS: 36415; 71045; 80053; 82550; 83690; 83735; 84484; 85025; 85610; 85730; 93005; 93971; 99284

== ENCOUNTER 2024-01-17 16:40 | Emergency (ER) | payer MEDICARE, OTHER, SELFPAY ==
[2024-01-17 17:03] VITALS: BP 124/85; PULSE 71; RESP 16; TEMP 36.9; O2SAT 97; BMI 22.4
--- NOTE | 2024-01-17 17:32 | DI.RAD.S_ITS ---
PROCEDURE: XR CHEST 1V INDICATIONS: chest pain TECHNIQUE: One view of the chest was acquired. COMPARISON: [facility], CR, XR CHEST 1V, 08/21/2022, 11:55. FINDINGS: Surgical changes and devices: None. Lungs and pleura: Lungs are clear. No pleural effusions or pneumothorax. Mediastinum: Mediastinal contours appear normal. Heart size is normal. Bones and chest wall: No suspicious bony lesions. Overlying soft tissues appear unremarkable. IMPRESSION: No acute cardiopulmonary pathology. Dictated by: Raimundo Redd M.D. on 01/17/2024 at 18:03 Approved by: Raimundo Redd M.D. on 01/17/2024 at 18:04
[2024-01-17 17:40] LABS: INR 1.1 (0.9-1.3); Prothrombin Time 12.4 SECONDS (9.4-12.5)
[2024-01-17 17:42] LABS: PTT Partial Thromboplastin Tim 39 SECONDS (25.1-36.5)
[2024-01-17 17:44] LABS: Add Manual Diff / Slide Review NO; Basophils Absolute Auto 100 /uL (0-100); Basophils Percent Auto 0.7 % (0-2); Eosinophils Absolute Auto 200 /uL (0-450); Eosinophils Percent Auto 2.4 % (2-4); Hematocrit 46.3 % (41-53); Hemoglobin 15.9 g/dL (13.5-17.5); Lymphocytes Absolute Auto 900 /uL (1100-4500); Lymphocytes Percent Auto 11.2 % (25-40); Mean Corpuscular HGB Conc 34.3 % (30-36); Mean Corpuscular Hemoglobin 33.2 PG (26-34); Mean Corpuscular Volume 96.9 fL (80-100); Monocytes Absolute Auto 1000 /uL (0-900); Monocytes Percent Auto 12.8 % (3-14); Neutrophils Absolute Auto 5900 /uL (1500-7000); Neutrophils Percent Auto 72.9 % (50-75); Platelet Count 158 X10^3/uL (150-400); Red Blood Cell Count 4.77 X10^6/uL (4.5-5.9); Red Cell Distribution Width 13.2 % (11.6-14.8); White Blood Cell Count 8.1 X10^3/uL (4.5-11.0)
[2024-01-17 17:58] LABS: Alanine Aminotransferase 18 IU/L (<50); Albumin Globulin Ratio 1.3 (1.0-2.8); Alkaline Phosphatase 62 U/L (38-126); Aspartate Aminotransferase 23 IU/L (17-59); BUN Creatinine Ratio 28.6 (6-22); Bilirubin Total 0.6 mg/dL (0.2-1.3); Blood Urea Nitrogen 22 mg/dL (9-20); Calcium 8.9 mg/dL (8.4-10.2); Carbon Dioxide 28 mmol/L (22-32); Chloride 104 mmol/L (98-107); Creatine Kinase 38 U/L (55-170); Estimated Glomerular Filt Rate > 60 mL/min (>60); Glucose 130 mg/dL (80-110); HEMOLYSIS < 15 (0-50); Lipase 36 U/L (23-300); Magnesium 2.2 mg/dL (1.6-2.3); Potassium 3.9 mmol/L (3.4-5.1); Sodium 138 mmol/L (137-145)
[2024-01-17 18:09] LABS: Troponin I < 0.012 ng/mL (0.01-0.034)
--- NOTE | 2024-01-17 18:46 | ED_ITS ---
HPI - Chest Pain General Chief Complaint: Chest Pain Stated Complaint: rt shoulder and chest pain Time Seen by Provider: 01/17/24 17:55 Source: patient Mode of arrival: Ambulatory Limitations: no limitations History of Present Illness HPI narrative: 74-year-old male here for evaluation chest discomfort and upper back discomfort. He states 2 weeks ago he thinks that he injured his right pectoralis muscle while clamping. He states since that time instead of letting it heal he has been doing other activities causing the symptoms to progressively worsen. He now states he is having pain in the center of his chest and upper in the back of his neck and upper back. No shortness of breath. It is somewhat worse with movement. No skin changes. He has had symptoms like this in the past that have gotten better with time but he thinks he just has not given it enough time to heal. A couple days ago he was using a tool to try to remove some clumps of grass from a flower bed and he thinks that he reaggravated it. He is here because he was advised to come for evaluation by family members. Related Data Previous Rx's Medication Instructions Recorded sulfacetamide sodium 10 % eye drops 1 drp EYE-RIGHT Q2H #5 mL 06/27/21 Allergies Allergy/AdvReac Type Severity Reaction Status Date / Time quinine Allergy Mild Rash Verified 06/27/21 07:30 Review of Systems Review of Systems Narrative: See HPI Patient History Medical History Prostate cancer Social History Smoking Status: Never smoker Smoking Status: Never smoker alcohol intake frequency: 0-2 drinks per day Substance Use Type: does not use Exam Initial Vital Signs Initial Vital Signs: Vital Signs Temperature 98.5 F 01/17/24 17:03 Pulse Rate 71 01/17/24 17:03 Respiratory Rate 16 01/17/24 17:03 Blood Pressure 124/85 01/17/24 17:03 Pulse Oximetry 97 01/17/24 17:03 Oxygen Delivery Method Room Air 01/17/24 17:03 Const General: cooperative, comfortable and No ill appearing HENMT Head: normal to inspection and normocephalic Chest Other: Mild discomfort to palpation over right pectoralis muscle Resp Effort & Inspection: normal respiratory effort Auscultation: clear to auscultation bilaterally Cardio Rate: regular rate Skin General: no rashes or lesions noted Neuro General: patient alert, patient awake and moves all extremities Extrem General: capillary refill normal Course Orders Ordered: ED Orders 01/17/24 17:25 Complete Blood Count AUTO DIFF Stat Comprehensive Metabolic Panel Stat Lipase Stat Magnesium Stat PTT Partial Thromboplastin Keith Stat Prothrombin Time INR Stat Troponin & CK Cardiac Panel Stat 01/17/24 17:32 XR chest 1V Stat EKG-12 Lead Stat Vital Signs Vital signs: Vital Signs - 8 hr 01/17/24 17:03 01/17/24 18:50 Temperature 98.5 F Pulse Rate 71 61 Respiratory Rate 16 Blood Pressure 124/85 136/80 Pulse Oximetry 97 99 Oxygen Delivery Method Room Air Room Air MDM - Chest Pain Lab Data Attestation: I reviewed the patient's lab results. 01/17/24 17:25 01/17/24 17:25 Labs: Lab Results 01/17/24 Range/Units 17:25 WBC 8.1 (4.5-11.0) X10^3/uL RBC 4.77 (4.5-5.9) X10^6/uL Hgb 15.9 (13.5-17.5) g/dL Hct 46.3 (41-53) % MCV 96.9 (80-100) fL MCH 33.2 (26-34) PG MCHC 34.3 (30-36) % RDW 13.2 (11.6-14.8) % Plt Count 158 (150-400) X10^3/uL Neut % (Auto) 72.9 (50-75) % Lymph % (Auto) 11.2 L (25-40) % [place] % (Auto) 12.8 (3-14) % Eos % (Auto) 2.4 (2-4) % Baso % (Auto) 0.7 (0-2) % Neut # (Auto) 5900 (7265-1924) /uL Lymph # (Auto) 900 L (1466-4057) /uL [place] # (Auto) 1000 H (0-900) /uL Eos # (Auto) 200 (0-450) /uL Baso # (Auto) 100 (0-100) /uL PT 12.4 (9.4-12.5) SECONDS INR 1.1 (0.9-1.3) APTT 39 H (25.1-36.5) SECONDS Sodium 138 (137-145) mmol/L Potassium 3.9 (3.4-5.1) mmol/L Chloride 104 (98-107) mmol/L Carbon Dioxide 28 (22-32) mmol/L BUN 22 H (9-20) mg/dL Creatinine 0.77 (0.66-1.25) mg/dL Estimated GFR > 60 (>60) mL/min BUN/Creatinine Ratio 28.6 H (6-22) Glucose 130 H (80-110) mg/dL Calcium 8.9 (8.4-10.2) mg/dL Magnesium 2.2 (1.6-2.3) mg/dL Total Bilirubin 0.6 (0.2-1.3) mg/dL AST 23 (17-59) IU/L ALT 18 (<50) IU/L Alkaline Phosphatase 62 (38-126) U/L Total Creatine Kinase 38 L (55-170) U/L Troponin I < 0.012 (0.01-0.034) ng/mL Total Protein 7.0 (6.3-8.2) g/dL Albumin 4.0 (3.5-5.0) g/dL Globulin 3.0 (1.7-4.1) g/dL Albumin/Globulin Ratio 1.3 (1.0-2.8) Lipase 36 (23-300) U/L Imaging Data Chest x-ray: Radiologist's Impression: PROCEDURE: XR CHEST 1V INDICATIONS: chest pain TECHNIQUE: One view of the chest was acquired. COMPARISON: [facility], , XR CHEST 1V, 08/21/2022, 11:55. FINDINGS: Surgical changes and devices: None. Lungs and pleura: Lungs are clear. No pleural effusions or pneumothorax. Mediastinum: Mediastinal contours appear normal. Heart size is normal. Bones and chest wall: No suspicious bony lesions. Overlying soft tissues appear unremarkable. IMPRESSION: No acute cardiopulmonary pathology. ECG Data Attestation: I personally reviewed and interpreted this ECG as follows: Interpretation: Sinus rhythm Ventricular rate is 72 Normal axis Normal QRS Normal QTC No ST T wave changes MDM Narrative Medical decision making narrative: Workup here in the emergency department is very reassuring and I suspect that his symptoms are musculoskeletal as it is most consistent with this. No indication for antibiotics. I do have low suspicion for ACS based on his presentation today. He does have a negative troponin. Nonischemic EKG. I did discuss all this with the patient. Provided reassurance. He would like to hold on any muscle relaxers for now. Will have him contact his primary doctor for follow-up. He was given return precautions. He expressed understanding and agreement. Discharge Plan Departure Patient Disposition: Home Clinical Impression: Muscular chest pain Activity Restrictions/Additional Instructions: Continue to take the ibuprofen with food as needed for the discomfort. Contact your primary doctor for a follow-up. Return to the emergency department for new symptoms. Prescriptions: No Action sulfacetamide sodium 10 % drops 1 drp EYE-RIGHT Q2H Qty: 5 0RF Rx Instructions: while awake, until better Referrals: Austen Cee ARNP [Primary Care Provider] - Stand Alone Forms: Patient Portal/API
[2024-01-17 18:50] VITALS: BP 136/80; PULSE 61; O2SAT 99
== END 2024-01-17 18:50 | disposition home or self-care (01) ==
PROVIDERS: Emergency Medicine; Emergency Provider Emergency Medicine; PCP Nurse Practitioner Family
DX: R07.89 Other chest pain (principal)
CPT/HCPCS: 36415; 71045; 80053; 82550; 83690; 83735; 84484; 85025; 85610; 85730; 93005; 99283; 99284

== ENCOUNTER 2024-09-28 13:04 | Emergency (ER) | payer MEDICARE, OTHER, SELFPAY ==
[2024-09-28] VITALS (16 sets, daily range): BP systolic 112–168; BP diastolic 68–114; PULSE 57–69; RESP 16–35; TEMP 36.3–36.8; O2SAT 96–99; BMI 21.5
--- NOTE | 2024-09-28 13:12 | EKG_ITS ---
[address] [address] Test Date: 2024-09-28 Pat Name: Nilesh Castro Department: [facility] Room: Gender: Male Dictaphone Operator: KIMMY : 1950 Requested By: Order Number: [id number] Reading MD: Fabricio Keita Measurements Intervals [place] Rate: 65 P: 78 FL: 138 QRS: 43 QRSD: 80 T: 17 QT: 432 QTc: 449 Interpretive Statements Normal sinus rhythm Electronically Signed On 10-01-2024 23:43:29 PST by Fabricio Keita
--- NOTE | 2024-09-28 13:18 | DI.RAD.S_ITS ---
PROCEDURE: XR CHEST 1V INDICATIONS: chest pain TECHNIQUE: One view of the chest was acquired. COMPARISON: [facility], CR, XR CHEST 1V, 01/17/2024, 17:32. FINDINGS: Surgical changes and devices: None. Lungs and pleura: Lungs are clear. No pleural effusions or pneumothorax. Mediastinum: Mediastinal contours appear normal. Heart size is normal. Bones and chest wall: No suspicious bony lesions. Overlying soft tissues appear unremarkable. IMPRESSION: No acute cardiopulmonary abnormality is seen. Approved by: Joel Huang M.D. on 09/28/2024 at 12:56
[2024-09-28 13:32] LABS: Add Manual Diff / Slide Review NO; Basophils Absolute Auto 100 /uL (0-100); Basophils Percent Auto 1.4 % (0-2); Eosinophils Absolute Auto 200 /uL (0-450); Eosinophils Percent Auto 4.3 % (2-4); Hematocrit 45.2 % (41-53); Hemoglobin 15.6 g/dL (13.5-17.5); Lymphocytes Absolute Auto 900 /uL (1100-4500); Lymphocytes Percent Auto 18.2 % (25-40); Mean Corpuscular HGB Conc 34.5 % (30-36); Mean Corpuscular Hemoglobin 33.4 PG (26-34); Mean Corpuscular Volume 96.8 fL (80-100); Monocytes Absolute Auto 500 /uL (0-900); Monocytes Percent Auto 10.9 % (3-14); Neutrophils Absolute Auto 3100 /uL (1500-7000); Neutrophils Percent Auto 65.2 % (50-75); Platelet Count 150 X10^3/uL (150-400); Red Blood Cell Count 4.67 X10^6/uL (4.5-5.9); Red Cell Distribution Width 12.9 % (11.6-14.8); White Blood Cell Count 4.8 X10^3/uL (4.5-11.0)
[2024-09-28 13:38] LABS: INR 1.1 (0.9-1.3)
[2024-09-28 13:41] LABS: PTT Partial Thromboplastin Tim 38 SECONDS (25.1-36.5)
[2024-09-28 13:43] LABS: Alanine Aminotransferase 22 IU/L (<50); Albumin 3.9 g/dL (3.5-5.0); Albumin Globulin Ratio 1.4 (1.0-2.8); Alkaline Phosphatase 53 U/L (38-126); Aspartate Aminotransferase 28 IU/L (17-59); BUN Creatinine Ratio 28.4 (6-22); Bilirubin Total 0.4 mg/dL (0.2-1.3); Blood Urea Nitrogen 25 mg/dL (9-20); Calcium 8.8 mg/dL (8.4-10.2); Carbon Dioxide 27 mmol/L (22-32); Chloride 104 mmol/L (98-107); Creatine Kinase 40 U/L (55-170); Estimated Glomerular Filt Rate > 60 mL/min (>60); Globulin 2.8 g/dL (1.7-4.1); Glucose 126 mg/dL (80-110); HEMOLYSIS 41 (0-50); Lipase 77 U/L (23-300); Magnesium 1.8 mg/dL (1.6-2.3); Potassium 3.9 mmol/L (3.4-5.1); Sodium 137 mmol/L (137-145); Total Protein 6.7 g/dL (6.3-8.2)
[2024-09-28 13:55] LABS: NT-proBNP (BNP-Adult 18+) 390 pg/mL (<450); Troponin I < 0.012 ng/mL (0.01-0.034)
[2024-09-28] MEDS: ASPIRIN 81 MG CHEW TAB 324 MG PO (14:01)
--- NOTE | 2024-09-28 14:02 | PC.NURSE ---
Pt reports taking 2 pills of an over the counter medication called Nattokinase yesterday.
--- NOTE | 2024-09-28 16:58 | EKG_ITS ---
[address] [address] [address] [address] Test Date: 2024-09-28 Pat Name: Nilesh Castro Department: Room: Gender: Male Urology Nurse: LATANYA : 1950 Requested By: Order Number: [id number] Reading MD: Fabricio Keita Measurements Intervals [place] Rate: 59 P: 72 [place]: 144 QRS: 37 QRSD: 90 T: 28 QT: 436 QTc: 431 Interpretive Statements Sinus bradycardia Electronically Signed On 10-01-2024 23:43:38 PST by Fabricio Keita
[2024-09-28 16:59] LABS: Troponin I < 0.012 ng/mL (0.01-0.034)
--- NOTE | 2024-09-28 17:08 | ED.ARRPALP ---
HPI - Arrhythmia/Palpitations General Chief Complaint: Arrhythmia/Palpitations Stated Complaint: Tightness in Chest, Erratic Heartbeat Time Seen by Provider: 09/28/24 16:02 Source: patient, RN notes reviewed and old records reviewed Mode of arrival: Ambulatory Limitations: no limitations History of Present Illness HPI narrative: 74-year-old male history of atrial fibrillation 1st episode in 1977 had an ablation in 2007, had prostate cancer diagnosed in 2009 treated with chemo and radiation 2-1/2 years ago had a sphincter placed for urination. Patient presents today with complaint of missed beats. Has been going on for 2 or 3 weeks he notes he has probably a little bit dehydrated he has not been drinking as much water as he probably should. Noticed a little bit of tightness in his chest this morning. No shortness of breath, no chest pain. No nausea or vomiting no issues with bowel movements no issues with urination no new swelling of his extremities. No diaphoresis. No lightheadedness or passing out or dizziness. Notes that his symptoms are more intense when he feels very anxious or frustrated particularly with current events in the world. Patient notes he takes 10 mg lisinopril daily, quit aspirin about 4 years ago in the recommendation of his physician he does not take any other anticoagulants. Has had prior cardiac ablation. No tobacco, no alcohol no recreational drugs. Does not drink caffeine. Does take some supplements including nattokinase. Also notes he was taking magnesium for awhile but has not been taking regularly. Has a primary care physician that he follows with. Related Data Previous Rx's Medication Instructions Recorded sulfacetamide sodium 10 % eye drops 1 drp EYE-RIGHT Q2H #5 mL 06/27/21 Allergies Allergy/AdvReac Type Severity Reaction Status Date / Time quinine Allergy Mild Rash Verified 06/27/21 07:30 Review of Systems Review of Systems ROS Unobtainable: All systems reviewed & are unremarkable except as noted in HPI and below Patient History Medical History Prostate cancer Social History Smoking Status: Never smoker Smoking Status: Never smoker alcohol intake frequency: 0-2 drinks per day Exam Narrative Exam Narrative: GENERAL: Alert and oriented x three, male in mild distress HEENT: Head normocephalic, atraumatic, EOMI, pupils reactive, face symmetric, moist mucous membranes NECK: Supple, full range of motion CARDIOVASCULAR: Regular rate and rhythm without murmurs, rubs or gallops. No JVD. No edema bilateral lower extremities. RESPIRATORY: Breath sounds equal bilaterally, no wheezes rales or rhonchi. ABDOMEN: Soft, nontender. Normoactive bowel sounds all 4 quadrants. No guarding or rebound, rigidity, no mass : No CVA tenderness EXTREMITIES: Normal range of motion, no clubbing or edema. Neurovascularly intact NEUROLOGICAL: Cranial nerves II through XII grossly intact. Moving all extremities SKIN: Warm, dry, no petechiae, no rashes or lesions. Initial Vital Signs Initial Vital Signs: Vital Signs Pulse Rate 65 09/28/24 13:10 Blood Pressure 148/77 H 09/28/24 13:10 Pulse Oximetry 97 09/28/24 13:10 Course Orders Ordered: ED Orders 09/28/24 13:09 EKG-12 Lead Stat 09/28/24 13:18 XR chest 1V Stat 09/28/24 13:25 Complete Blood Count AUTO DIFF Stat Comprehensive Metabolic Panel Stat Lipase Stat Magnesium Stat NT-proBNP (BNP-Adult 18+) Stat PTT Partial Thromboplastin Keith Stat Prothrombin Time INR Stat Troponin & CK Cardiac Panel Stat 09/28/24 16:10 Trop I [Troponin I] Stat Discontinued Medications Aspirin (Aspirin 81 Mg Chew Tab) 324 mg PO NOW ONE Stop: 09/28/24 13:19 Last Admin: 09/28/24 14:01 Dose: 324 mg Documented By: SB Vital Signs Vital signs: Vital Signs - 8 hr 09/28/24 13:10 09/28/24 13:10 09/28/24 13:14 Temperature 97.4 F L Pulse Rate 65 63 Respiratory Rate 18 Blood Pressure 148/77 H 148/77 H Pulse Oximetry 97 97 Oxygen Delivery Method Room Air 09/28/24 13:30 09/28/24 13:48 09/28/24 13:48 Temperature Pulse Rate 69 66 Respiratory Rate 28 H 20 Blood Pressure 140/82 Pulse Oximetry 98 98 Oxygen Delivery Method 09/28/24 14:00 09/28/24 14:00 09/28/24 14:30 Temperature Pulse Rate 63 62 Respiratory Rate 16 18 Blood Pressure 112/68 Pulse Oximetry 96 97 Oxygen Delivery Method 09/28/24 14:30 09/28/24 15:00 09/28/24 15:00 Temperature Pulse Rate 62 Respiratory Rate 18 Blood Pressure 114/76 127/76 Pulse Oximetry 99 Oxygen Delivery Method 09/28/24 15:30 09/28/24 15:30 09/28/24 16:00 Temperature Pulse Rate 63 59 L Respiratory Rate 17 18 Blood Pressure 130/79 Pulse Oximetry 98 99 Oxygen Delivery Method 09/28/24 16:00 09/28/24 16:30 09/28/24 16:30 Temperature Pulse Rate 63 Respiratory Rate 24 Blood Pressure 127/76 133/82 Pulse Oximetry 99 Oxygen Delivery Method 09/28/24 17:00 09/28/24 17:01 09/28/24 17:01 Temperature Pulse Rate 60 60 Respiratory Rate 35 H 30 H Blood Pressure 125/93 H Pulse Oximetry 99 99 Oxygen Delivery Method MDM - Arrhythmia/Palpitations Lab Data 09/28/24 13:25 09/28/24 13:25 Labs: Lab Results 09/28/24 09/28/24 Range/Units 13:25 16:10 WBC 4.8 (4.5-11.0) X10^3/uL RBC 4.67 (4.5-5.9) X10^6/uL Hgb 15.6 (13.5-17.5) g/dL Hct 45.2 (41-53) % MCV 96.8 (80-100) fL MCH 33.4 (26-34) PG MCHC 34.5 (30-36) % RDW 12.9 (11.6-14.8) % Plt Count 150 (150-400) X10^3/uL Neut % (Auto) 65.2 (50-75) % Lymph % (Auto) 18.2 L (25-40) % [place] % (Auto) 10.9 (3-14) % Eos % (Auto) 4.3 H (2-4) % Baso % (Auto) 1.4 (0-2) % Neut # (Auto) 3100 (6242-4231) /uL Lymph # (Auto) 900 L (5086-4087) /uL [place] # (Auto) 500 (0-900) /uL Eos # (Auto) 200 (0-450) /uL Baso # (Auto) 100 (0-100) /uL PT 12.0 (9.4-12.5) SECONDS INR 1.1 (0.9-1.3) APTT 38 H (25.1-36.5) SECONDS Sodium 137 (137-145) mmol/L Potassium 3.9 (3.4-5.1) mmol/L Chloride 104 (98-107) mmol/L Carbon Dioxide 27 (22-32) mmol/L BUN 25 H (9-20) mg/dL Creatinine 0.88 (0.66-1.25) mg/dL Estimated GFR > 60 (>60) mL/min BUN/Creatinine Ratio 28.4 H (6-22) Glucose 126 H (80-110) mg/dL Calcium 8.8 (8.4-10.2) mg/dL Magnesium 1.8 (1.6-2.3) mg/dL Total Bilirubin 0.4 (0.2-1.3) mg/dL AST 28 (17-59) IU/L ALT 22 (<50) IU/L Alkaline Phosphatase 53 (38-126) U/L Total Creatine Kinase 40 L (55-170) U/L Troponin I < 0.012 < 0.012 (0.01-0.034) ng/mL NT-Pro-B Natriuret Pep 390 (<450) pg/mL Total Protein 6.7 (6.3-8.2) g/dL Albumin 3.9 (3.5-5.0) g/dL Globulin 2.8 (1.7-4.1) g/dL Albumin/Globulin Ratio 1.4 (1.0-2.8) Lipase 77 (23-300) U/L Imaging Data Chest x-ray: Radiologist's Impresson: [address] [address] XRay Report Signed Patient: Nilesh Castro MR#: [id number] : 1950 Acct:[id number] Age/Sex: 74 / M Date of Service: 09/28/24 Loc: ED Accession Number: [id number] Procedure: XR chest 1V Ordering Provider: Roxanne Hernandez D.O. PROCEDURE: XR CHEST 1V INDICATIONS: chest pain TECHNIQUE: One view of the chest was acquired. COMPARISON: Located Within [facility], CR, XR CHEST 1V, 01/17/2024, 17:32. FINDINGS: Surgical changes and devices: None. Lungs and pleura: Lungs are clear. No pleural effusions or pneumothorax. Mediastinum: Mediastinal contours appear normal. Heart size is normal. Bones and chest wall: No suspicious bony lesions. Overlying soft tissues appear unremarkable. IMPRESSION: No acute cardiopulmonary abnormality is seen. Approved by: Joel Huang M.D. on 09/28/2024 at 12:56 ECG Data Interpretation: EKG shows sinus rhythm rate of 65 OK 138 QRS 80 QTC of 449, no acute ST changes appreciated. Repeat EKG shows sinus Simone rate of 59 OK 144 QRS of 90 QTC of 431 nonspecific change. MDM Narrative Medical decision making narrative: 74-year-old male with complaint of chest tightness and irregular heartbeat with known history of atrial fibrillation who is had a cardiac ablation in 2007 and no persistent atrial fibrillation. Feels like skipping intermittently history of atrial fibrillation ablation in 2007. Patient has not had any arrhythmias or changes to his rhythm here in the department. Workup so far has overall been appropriate potassium Mag are within normal ranges. To feel patient would probably benefit from following up to have a ZIO patch or Holter monitor. Discussed return precautions. Chest x-ray is negative for acute change EKG appears similar to 01/17/2024 with no acute or dynamic changes nonspecific change. Labs show white count of 4.8 hemoglobin of 15 platelets of 150, INR is 1.1 electrolytes are otherwise appropriate BUN 25 creatinine 0.88 glucose is 126 LFTs are negative total CK is 40 troponins less than 0.012 with a repeat troponin less than 0.012 and a BNP of 390. Discharge Plan Departure Patient Disposition: Home Clinical Impression: Palpitations Activity Restrictions/Additional Instructions: Please follow up with your physician, if you are having persistent frequent skipped beats I do recommend following up for a Holter or ZIO patch to check for any other arrhythmias. Continue to hydrate regularly. Continue your home medication as prescribed. Please return if you have new or worsening changes persistent chest pain or pressure, shortness of breath, lightheadedness or passing out, fevers, new swelling of your extremities, nausea or vomiting or other new or concerning changes. Prescriptions: No Action sulfacetamide sodium 10 % drops 1 drp EYE-RIGHT Q2H Qty: 5 0RF Rx Instructions: while awake, until better Referrals: Austen Cee ARNP [Primary Care Provider] - Stand Alone Forms: Patient Portal/API/Survey
== END 2024-09-28 18:46 | disposition home or self-care (01) ==
PROVIDERS: Emergency Provider Emergency Medicine; PCP Nurse Practitioner Family
DX: R00.2 Palpitations (principal); I48.91 Unspecified atrial fibrillation; R07.9 Chest pain, unspecified; Z85.46 Personal history of malignant neoplasm of prostate; Z92.21 Personal history of antineoplastic chemotherapy; R00.1 Bradycardia, unspecified
CPT/HCPCS: 36415; 71045; 80053; 82550; 83690; 83735; 83880; 84484; 85025; 85610; 85730; 93005; 99284

== ENCOUNTER → 2025-01-28 13:13 | Outpatient (CLI) | payer MEDICARE, OTHER, SELFPAY ==
--- NOTE | 2025-01-28 13:17 | DI.ECHO.S_ITS ---
[facility]+ [facility] : : [address] : : [place] : : [id number] : : Phone: [phone] Echocardiogram Report + + :Name: VONNIE WOODSON Study Date: 01/28/2025 Height: 74 in : :[facility] ReadingLocation: Weight: 165 lb : : Gender: Male BSA: 2.0 m2 : :: 1950 Age: 75 yrs BP: 120/82 mmHg: :Reason For Study: PAF/ CHEST PAIN : :Ordering Physician: COLBY REDD Performed By: Rena Crump : :Referring: COLBY REDD : + + Interpretation Summary 1. Left ventricular contractility is borderline. Estimated ejection fraction is 50 to 55% with no segmental wall motion abnormalities. No LVH. No diastolic dysfunction. 2. The right ventricular contractility is normal. 3. Moderate left atrial enlargement. All other cardiac chambers are of normal size. 4. Mild mitral regurgitation. 5. Mild tricuspid regurgitation with estimated pulmonary systolic artery pressures of 30 mmHg. 6. No obvious intracardiac shunts. 7. No obvious intracardiac masses or thrombi. 8. No hemodynamically significant pericardial effusion. 9. Normal right-sided filling pressures. Conclusion: Low normal left ventricular systolic function with mild valvular insufficiencies. When compared with previous echocardiogram, there is a mild decline in the left ventricular systolic function. Procedure: A two-dimensional transthoracic echocardiogram with color flow and Doppler was performed. The study quality was technically adequate. Comparison is made with the echocardiogram of 12/10/2017. The patient was in sinus rhythm with heart rates between 59-76 bpm during the exam. The patient had occasional PVCs during the exam. Left Ventricle: The left ventricle is normal in size and wall thickness. A false chord is noted (normal variant). The ejection fraction is estimated to be 50-55%. Right Ventricle: The right ventricle is normal in size and function. Atria: The left atrium is moderately dilated. The right atrium is mildly dilated. There is no Doppler evidence for an interatrial shunt. Mitral Valve: There is borderline mitral valve prolapse. There is mild mitral regurgitation. Aortic Valve: The aortic valve is trileaflet. The aortic valve opens well. There is no aortic valve stenosis. No aortic regurgitation is present. Tricuspid Valve: The tricuspid valve leaflets are thin and pliable. There is mild tricuspid regurgitation. The right ventricular systolic pressure is estimated to be at least 30 mmHg based on an estimated right atrial pressure of 8 mm Hg. Pulmonic Valve: The pulmonic valve leaflets are thin and pliable; valve motion is normal. There is trace pulmonic regurgitation. Great Vessels: The aortic root is normal size. The dimensions of the ascending aorta are normal. The IVC is dilated (diameter is greater than 2.1 cm) yet it collapses greater than 50% with a sniff. This suggests a right atrial pressure of 8 mm Hg. Pericardium/ Pleura There is no pericardial effusion. There is no pleural effusion. MMode/2D Measurements & Calculations LVIDd: 5.3 cm LVOT diam: 2.1 cm LVIDs: 4.2 cm Ao root diam: 3.0 cm FS: 21.3 % asc Aorta Diam: 3.4 cm EPSS: 0.71 cm Ao Arch Diam (Prox Trans): 3.4 cm IVSd: 0.98 cm LVPWd: 0.75 cm LV garcia. diameter/BSA (cm/m^2): 2.6 LV sys. diameter/BSA (cm/m^2): 2.1 LA A2 area: 24.4 cm2 RA long axis: 6.1 cm LA A4 area: 25.4 cm2 RA area: 22.7 cm2 LA length (vol): 6.1 cm RA vol: 71.2 ml LA vol: 86.8 ml RA : 35.5 ml/m2 LA vol index: 43.4 ml/m2 IVC diam: 2.1 cm RVD1 (basal): 3.8 cm RVD2 (mid): 3.4 cm TAPSE: 1.9 cm Doppler Measurements & Calculations Ao V2 max: 109.4 cm/sec LVOT Max Jc: 86.0 cm/sec Ao V2 mean: 72.2 cm/sec LV V1 max P.0 mmHg Ao max P.8 mmHg LV V1 VTI: 17.5 cm Ao mean P.4 mmHg ALEKSANDAR(I,D): 2.5 cm2 Ao V2 VTI: 24.0 cm ALEKSANDAR(V,D): 2.7 cm2 sev ratio: 0.73 ALEKSANDAR indexed to BSA (cm^2/m^2): 1.3 MV E max jc: 55.1 cm/sec TR max jc: 235.2 cm/sec MV A max jc: 30.0 cm/sec TR max P.2 mmHg MV E/A: 1.8 PA V2 max: 82.5 cm/sec Med Peak E' Jc: 7.5 cm/sec PA V2 mean: 56.2 cm/sec E/E' med: 7.4 PA mean P.4 mmHg Lat Peak E' Jc: 10.4 cm/sec PA pr(Accel): 17.3 mmHg E/E' lat: 5.3 E/e' average: 6.3 MV dec time: 0.23 sec SV(LVOT): 60.9 ml Reading Physician:EDWIGE
--- NOTE | 2025-01-28 13:19 | DI.NM.S_ITS ---
PROCEDURE: NM EXERCISE TREADMILL NON NUC COMPARISON: None. INDICATIONS: PAF/CHEST PAIN FINDINGS: Rest ECG sinus rhythm 74 bpm, frequent PVCs. Salazar protocol 10:24, maximum heart rate 132 bpm (92% peak predicted), peak blood pressure 160/92, 12.8 METS, AMY -70%. Exercise ECG sinus tachycardia, no ST segment changes, decreased PVC burden. The patient did not report exercise-induced chest discomfort. IMPRESSION: Low risk study. No evidence of exercise-induced ischemia or arrhythmia. Baseline PVCs decreased with exercise. Normal hemodynamic response. Excellent exercise capacity. Dictated by: Anusha Nicholas D.O. on 01/28/2025 at 16:25 Approved by: Anusha Nicholas D.O. on 01/28/2025 at 16:27
== END ==
LOC: ECHO 13:15
PROVIDERS: Referring Provider Internal Medicine; Visit Provider Internal Medicine
DX: I08.1 Rheumatic disorders of both mitral and tricuspid valves (principal); I48.0 Paroxysmal atrial fibrillation; R07.9 Chest pain, unspecified
CPT/HCPCS: 93017; 93306

== ENCOUNTER 2025-03-12 08:57 | Emergency (ER) | payer MEDICARE, OTHER, SELFPAY ==
[2025-03-12 09:05] VITALS: BP 130/75; PULSE 64; RESP 14; TEMP 36.6; O2SAT 100; BMI 20.5
--- NOTE | 2025-03-12 10:31 | ED_ITS ---
HPI - Extremity Problem General Chief complaint: Extremity Problem,Nontraumatic Stated complaint: Possible deep vein Thrombosis L leg per patient Time Seen by Provider: 03/12/25 09:55 Source: patient Mode of arrival: Ambulatory History of Present Illness HPI Narrative: Patient complains of left posterior mid thigh pain for the past 5 days. Shoes socks pants removed. Patient has no prior history of blood clots in legs or lungs or arms. Patient states this past Sunday he was sitting on top of his boat with the edge of the wall of the upper [place] boat pressing against his posterior thighs as he had to navigate through crab pots. Patient denies any chest pain or shortness of breath. Related Data Previous Rx's ?Medication ?Instructions ?Recorded sulfacetamide sodium 10 % eye drops 1 drp EYE-RIGHT Q2 H #5 mL 06/27/21 baclofen 20 mg tablet 20 mg PO TID PRN pain (scale score 03/12/25 4-6) #20 tabs Allergies Allergy/AdvReac Type Severity Reaction Status Date / Time quinine Allergy Mild Rash Verified 03/12/25 09:10 diltiazem (From Cardizem) Allergy Verified 03/12/25 09:10 Review of Systems Review of Systems Narrative: GENERAL: Negative chills, fatigue, malaise, fever, sweats. HEENT: Negative sinus pain, ear pain, sore throat RESPIRATORY: Negative dyspnea, cough CARDIOVASCULAR: Negative chest pain, palpitations GASTROINTESTINAL: Negative vomiting, nausea, abdominal pain : Negative dysuria, frequency, hematuria MUSCULOSKELETAL: Positive muscle or bony pain SKIN: Negative rash, skin lesions NEUROLOGIC: Negative weakness, numbness ROS Unobtainable: All systems reviewed & are unremarkable except as noted in HPI and below Patient History Medical History Prostate cancer Social History Smoking Status: Former smoker Smoking Status: Former smoker alcohol intake frequency: 0-2 drinks per day Exam Narrative Exam Narrative: GENERAL: in no distress, not toxic not dyspneic HEAD: Normocephalic. EYES: Pupils equal round EXTREMITIES: No gross deformities. Left lower extremity warm soft pink grossly symmetric thigh and calf to the right. No palpable cords negative Homans test negative Isabel test. Mild tenderness to mid left hamstring. BACK: No flank tenderness. No midline tenderness or step-off of the cervical thoracic or lumbar spine. No left paralumbar muscle tenderness. Able to lean forward and back do side bends without difficulty. No pain with left leg straight raise.. NEURO: AOx4. Clear speech. Light touch intact to bilateral feet and toes strong bilateral patellar reflexes and ankle flexion-extension. Steady self gait no footdrop SKIN: Warm and dry PSYCH: Not anxious, is cooperative Initial Vital Signs Initial Vital Signs: Vital Signs Temperature 97.9 F 03/12/25 09:05 Pulse Rate 64 03/12/25 09:05 Respiratory Rate 14 03/12/25 09:05 Blood Pressure 130/75 03/12/25 09:05 Pulse Oximetry 100 03/12/25 09:05 Oxygen Delivery Method Room Air 03/12/25 09:05 Course Orders Ordered: ED Orders 03/12/25 10:30 [facility] venous low extrem lt Stat Vital Signs Vital signs: Vital Signs - 8 hr 03/12/25 09:05 Temperature 97.9 F Pulse Rate 64 Respiratory Rate 14 Blood Pressure 130/75 Pulse Oximetry 100 Oxygen Delivery Method Room Air MDM - Extremity (Nontraumatic) Imaging Data US - DVT: Radiologist's Impression: [place] [address] Ultrasound Report Signed Patient: Nilesh Castro MR#: [id number] : 1950 Acct:[id number] Age/Sex: 75 / M Date of Service: 03/12/25 Loc: ED Accession Number: [id number] Procedure: [facility] venous low extrem lt Ordering Provider: Kev Smith MD PROCEDURE: PERIP VENOUS LOW EXTREM LT INDICATIONS: Left posterior thigh pain TECHNIQUE: Real-time imaging, as well as color and pulse Doppler interrogation, were performed of the lower extremity deep veins from the inguinal ligament to the popliteal fossa, with documentation of the visualized calf veins. COMPARISON: None. FINDINGS: The common femoral, femoral, popliteal, and the visualized calf veins are normally compressible, and free of intraluminal thrombus. Color and pulse Doppler demonstrate normal phasic intraluminal flow. There is normal augmentation response to distal compression maneuver. IMPRESSION: No findings of lower extremity deep venous thrombosis. Dictated by: Chris Mccurdy M.D. on 03/12/2025 at 11:37 Approved by: Chris Mccurdy M.D. on 03/12/2025 at 11:38 [facility] Narrative Medical decision making narrative: Patient complains of left posterior mid thigh pain for the past 5 days. Shoes socks pants removed. Patient has no prior history of blood clots in legs or lungs or arms. Patient states this past Sunday he was sitting on top of his boat with the edge of the wall of the upper [place] boat pressing against his posterior thighs as he had to navigate through crab pots. Patient denies any chest pain or shortness of breath. After history and exam, no blood work indicated at this time. Ultrasound of the leg will be ordered. [facility] Medical records reviewed: No recent visit for this complaint Differential considered: Includes but not limited to DVT SVT muscle cramp muscle contusion Imaging studies independently reviewed: Ultrasound left leg no DVT Consultations: None indicated Re-evaluations: 12:00 p.m.. Updated patient results. They are reassuring. Patient did state that he did have problems with L4 disc in the past. This could be a component of his discomfort as well. Causing maybe some sciatica. However denies any back pain. Return precautions reviewed. He desires discharge home. Discussion: Appropriate for discharge home exam is reassuring. Return precautions with patient. Patient may have component of sciatica as he states he has had back problems in the past. However symptoms started with him compressing the left hamstring against the edge of his boat. Diagnosis: Hamstring strain Discharge Plan Departure Patient Disposition: Home Clinical Impression: Hamstring muscle strain Qualifiers: Encounter type: initial encounter Laterality: left Qualified Code(s): S76.312A - Strain of muscle, fascia and tendon of the posterior muscle group at thigh level, left thigh, initial encounter Instructions: DI for Muscle Strain Activity Restrictions/Additional Instructions: Your exam and ultrasound are reassuring. No blood clot was seen today. It is possible you strained the muscle in the hamstring and possibly triggering sciatica. Baclofen has been prescribed for your discomfort. It has been sent to your pharmacy to continue. See family doctor in a week for re-evaluation. Return if worse if any questions or concerns. Prescriptions: New baclofen 20 mg tablet 20 mg PO TID PRN (Reason: pain (scale score 4-6)) Qty: 20 0RF No Action sulfacetamide sodium 10 % drops 1 drp EYE-RIGHT Q2H Qty: 5 0RF Rx Instructions: while awake, until better Referrals: Doug Son MD [Primary Care Provider, [facility]] Stand Alone Forms: Patient Portal/API
[2025-03-12 13:03] VITALS: BP 116/73; PULSE 62; RESP 18; TEMP 36.7; O2SAT 99
== END 2025-03-12 13:00 | disposition home or self-care (01) ==
PROVIDERS: Emergency Provider Emergency Medicine
DX: S76.312A Strain of muscle, fascia and tendon of the posterior muscle group at thigh level, left thigh, initial encounter (principal); X50.1XXA Overexertion from prolonged static or awkward postures, initial encounter
CPT/HCPCS: 93971; 99281; 99283